=== PATIENT | female | born 2000 | race Two or more races ===

== ENCOUNTER 2019-11-12 10:49 | Emergency (ER) | payer SELFPAY ==
[~2019-11-12] VITALS: Ht 157.5 cm; Wt 64.9 kg
[2019-11-12 11:33] VITALS: BP 131/77
== END 2019-11-12 11:57 | disposition home or self-care (01) ==
LOC: ER 10:49
DX: N39.0 Urinary tract infection, site not specified (principal); R42 Dizziness and giddiness; R51 Headache; Z32.02 Encounter for pregnancy test, result negative
CPT/HCPCS: 81002; 81025